=== PATIENT | male | born 1945 | race Caucasian/White ===

== ENCOUNTER 2021-03-02 17:05 | Emergency (ER) | payer OTHER ==
[~2021-03-02] VITALS: Ht 172.7 cm; Wt 72.6 kg
[2021-03-02] MEDS ORDERED: CASIRIVIMAB/IMDEVIMAB 10 ML in SODIUM CHLORIDE 0.9% 100 ML IV ONE (17:45)
[2021-03-02] MEDS ORDERED: TETANUS/DIPHTHERIA TOX ADULT 0.5 ML SYR IM ONE (18:45)
== END 2021-03-02 19:32 | disposition home or self-care (01) ==
LOC: ER 17:42
DX: R06.02 Shortness of breath (principal); R05 Cough; U07.1 COVID-19; I10 Essential (primary) hypertension; E78.5 Hyperlipidemia, unspecified
CPT/HCPCS: 93005; 99282; J7050; U0002